=== PATIENT | female | born 1940 | race Caucasian/White ===

== ENCOUNTER 2018-12-08 10:57 | Emergency (ER) | payer OTHER, MEDICAID ==
[~2018-12-08] VITALS: Ht 162.6 cm; Wt 81.0 kg
[2018-12-08] MEDS ORDERED: DICL75TA5 PO (11:31)
[2018-12-08] MEDS ORDERED: BENA40TA66 PO (11:31)
[2018-12-08] MEDS ORDERED: HYDR12.529 PO (11:31)
[2018-12-08] MEDS ORDERED: OMEP20CA5 PO (11:31)
[2018-12-08] MEDS ORDERED: CARV3.1242 PO (11:31)
[2018-12-08] MEDS ORDERED: LEVO150T8 PO (11:31)
[2018-12-08] MEDS ORDERED: ASPI-1393 PO (11:31)
[2018-12-08] MEDS ORDERED: GEMF600T5 PO (11:31)
[2018-12-08] MEDS ORDERED: KETOROLAC 15MG/ML VIAL IV ONE (12:45)
[2018-12-08] MEDS ORDERED: ONDANSETRON HCL 4MG/2ML INJ IV ONE (13:15)
[2018-12-08] MEDS ORDERED: SODIUM CHLORIDE 0.9% 500 ML IV ONE (13:15)
[2018-12-08 13:33] LABS: CLARITY URINE CLEAR (CLEAR); COLOR URINE YELLOW (YELLOW); KETONES URINE NEGATIVE (NEGATIVE); LEUKOCYTE ESTERASE URINE TRACE (NEGATIVE); NITRITE URINE NEGATIVE (NEGATIVE); OCCULT BLOOD URINE NEGATIVE (NEGATIVE); PROTEIN URINE NEGATIVE (NEGATIVE); UROBILINOGEN URINE 0.2 E.U./dL (0.2-1.0)
[2018-12-08 14:44] LABS: BASOPHILS % 0.5 % (0.0-2.0); EOSINOPHILS % 3.4 % (0.0-5.0); HEMATOCRIT. 27.6 % (36.0-48.0); HEMOGLOBIN. 9.8 g/dL (12.0-16.0); LYMPHOCYTES % 47.5 % (20.0-50.0); MEAN CORPUSCULAR HEMOGLOBIN 33.8 pg (28.0-32.0); MEAN CORPUSCULAR VOLUME 95.4 fL (81.0-99.0); MEAN PLATELET VOLUME 7.2 fl (7.4-10.4); MONOCYTES % 5.4 % (2.0-8.0); NEUTROPHILS % 43.2 % (40.0-76.0); PLATELET 234 x1000/uL (130-400); RED BLOOD CELL COUNT 2.89 mill/uL (4.2-5.4); RED CELL DISTRIBUTION WIDTH 12.3 % (11.6-14.6)
[2018-12-08 15:46] VITALS: BP 126/58
== END 2018-12-08 20:27 | disposition home or self-care (01) ==
LOC: ER 19:48
DX: M54.41 Lumbago with sciatica, right side (principal); T36.8X5A Adverse effect of other systemic antibiotics, initial encounter; R10.9 Unspecified abdominal pain; R11.0 Nausea; I11.0 Hypertensive heart disease with heart failure; I50.9 Heart failure, unspecified; K21.9 Gastro-esophageal reflux disease without esophagitis; E03.9 Hypothyroidism, unspecified; E78.5 Hyperlipidemia, unspecified; E78.00 Pure hypercholesterolemia, unspecified; Z79.82 Long term (current) use of aspirin; Z79.899 Other long term (current) drug therapy; Z96.649 Presence of unspecified artificial hip joint; Z87.440 Personal history of urinary (tract) infections; Y92.89 Other specified places as the place of occurrence of the external cause
CPT/HCPCS: 36415; 80048; 81003; 85025; 96361; 96374; 96375; 99283; J1885; J2405; J7040

== ENCOUNTER 2023-03-05 23:49 | Emergency (ER) | payer OTHER, MEDICAID ==
[~2023-03-05 23:49] MED LIST: ASPI-1497 PO; BENA40TA66 PO; CARV3.1242 PO; DICL75TA5 PO; GEMF600T90 PO; HYDR12.529 PO; LEVO150T8 PO; OMEP20CA14 PO
== END 2023-03-06 02:03 | disposition left against medical advice (07) ==
LOC: ER 23:49
DX: I10 Essential (primary) hypertension (principal); Z53.21 Procedure and treatment not carried out due to patient leaving prior to being seen by health care provider

== ENCOUNTER 2024-07-26 10:57 | Emergency (ER) | payer MEDICARE, MEDICAID ==
[~2024-07-26] VITALS: Ht 157.5 cm; Wt 77.1 kg
[2024-07-26 11:20] VITALS: O2SAT 98
[2024-07-26] MEDS ORDERED: TRAM50TA3 MT (12:09)
[2024-07-26] MEDS ORDERED: VALA100044 MT (12:09)
[2024-07-26] MEDS ORDERED: MUPI1OIN4 TP (12:09)
[2024-07-26] MEDS: FLUORESCEIN SODIUM 1MG/STRIP RIGHTEYE ONE (12:17)
[2024-07-26 13:10] VITALS: BP 134/51; PULSE 80; RESP 18; TEMP 36.9; O2SAT 98
== END 2024-07-26 13:11 | disposition home or self-care (01) ==
LOC: ER 12:50
DX: B02.30 Zoster ocular disease, unspecified (principal); I50.9 Heart failure, unspecified; I11.0 Hypertensive heart disease with heart failure; K21.9 Gastro-esophageal reflux disease without esophagitis; E03.9 Hypothyroidism, unspecified; E78.00 Pure hypercholesterolemia, unspecified; Z96.649 Presence of unspecified artificial hip joint
CPT/HCPCS: 99283